=== PATIENT | male | born 1975 | race African-American/Black ===

== ENCOUNTER 2016-06-19 23:38 | Emergency (ER) | payer MEDICAID, MEDICARE ==
[~2016-06-19] VITALS: Ht 193 cm; Wt 80.7 kg
[2016-06-19 23:40] VITALS: BP 127/82
--- NOTE | 2016-06-19 23:57 | Emergency Room Report ---
History of Present Illness General Chief Complaint: Medication Refill Source: Patient, EMS Present Illness HPI Patient presents complaining of hearing voices. He was brought in by EMS. The patient states is been off his medication for 18 months. He usually takes Ativan. After further evaluation he also states he was taking Geodon. Denies suicidality or homicidal ideation. The patient drinking alcohol last night and vomited. There was no blood. He's had some loose stools that have been brown in color but denies melena. Denies any fever or chills productive cough. He states he does spit up phlegm. He's been urinating without dysuria or hematuria. He denies any pain in his joints. No rashes. No headache. No trauma. Allergies: Coded Allergies: No Known Allergies (Unverified , 01/01/15) Patient History Past Medical History: see triage record Social History: Reports: alcohol use, drug use - THC Social History Narrative on streets Reviewed Nursing Documentation: PMH: Agreed, PSxH: Agreed Nursing Documentation-PMH Hx Cardiac Problems: No - PSYCH History Of Psychiatric Problem: Yes - BIPOLAR,SCHIZO Review of Systems All Other Systems: negative except mentioned in HPI Physical Exam Vital Signs Date Time Temp Pulse Resp B/P Pulse Ox O2 Delivery O2 Flow Rate FiO2 06/19/16 23:37 98.1 64 16 132/84 99 Room Air Sp02 EP Interpretation: reviewed, normal General Appearance: well appearing, no apparent distress, other - slightly dishevelled Head: normocephalic Eyes: bilateral eye PERRL, bilateral eye normal inspection ENT: moist mucus membranes Neck: supple Respiratory: lungs clear, normal breath sounds Cardiovascular #1: regular rate, rhythm Cardiovascular #2: 2+ radial (R) Gastrointestinal: normal inspection, normal bowel sounds, non tender, no mass, non-distended Musculoskeletal: back normal, gait/station normal, normal range of motion Neurologic: alert, motor strength/tone normal, cerebellar normal, normal gait, speech normal, oriented - O Psychiatric: no suicidal/homicidal ideation, other - slightly pressured and somewhat anxious, responding to redirection well Skin: normal inspection, warm/dry Medical Decision Making Diagnostic Impression: Primary Impression: Schizophrenia Qualified Codes: F20.3 - Undifferentiated schizophrenia ER Course Presents requesting medication refill. He initially asked to get Ativan however he states he's been hearing voices. I discussed the fact that the Ativan cannot help him with his voices. He states he was drinking alcohol last night and was vomiting. He doesn't appear volume depleted at this time has a normal pulse rate. He denies suicidal or homicidal ideation. The patient will be given his medication and a prescription. He will be advised to followup. There is no medical emergency at this at this time. Improved after medication and resting in NAD. Patient stable for outpatient treatment. Last Vital Signs Date Time Temp Pulse Resp B/P Pulse Ox O2 Delivery O2 Flow Rate FiO2 06/20/16 06:30 98.1 88 21 133/88 97 Room Air Status: improved Disposition: HOME, SELF-CARE Condition: Improved Scripts Ziprasidone Hcl* (GEODON*) 20 Mg Capsule 20 MG ORAL TWICE A DAY, #60 CAP 0 Refills Prov: Leno Trejo M.D. 06/20/16 Leno Trejo M.D. Jun 19, 2016 23:57
[2016-06-20] MEDS ORDERED: Ziprasidone 20mg cap ORAL ONE
[2016-06-20] MEDS ORDERED: LORazepam 0.5mg tab ORAL ONE
[2016-06-20] MEDS ORDERED: GEODON20 MG ORAL (00:16)
[2016-06-20 04:30] VITALS: BP 134/88
[2016-06-20 06:03] VITALS: BP 133/88
[2016-06-20 06:30] VITALS: BP 133/88
== END 2016-06-20 06:30 | disposition home or self-care (01) ==
LOC: EDBD 23:38 → EMR 06-20
DX: F20.9 Schizophrenia, unspecified (principal); Z76.0 Encounter for issue of repeat prescription; F31.9 Bipolar disorder, unspecified; F12.90 Cannabis use, unspecified, uncomplicated
CPT/HCPCS: 99283

== ENCOUNTER 2016-09-13 01:01 | Emergency (ER) | payer MEDICARE, MEDICAID ==
[~2016-09-13] VITALS: Ht 182.9 cm; Wt 80.7 kg
[~2016-09-13 01:01] MED LIST: GEODON20 MG ORAL
[2016-09-13 01:10] VITALS: BP 128/75
[2016-09-13] MEDS ORDERED: GEODON20 MG ORAL (02:30)
--- NOTE | 2016-09-13 02:30 | Emergency Room Report ---
History of Present Illness General Chief Complaint: Medication Refill Source: Patient, EMS Present Illness HPI Is a 40-year-old gentleman with a history of schizophrenia. He said is out of his Geodon for the last month. He does not go to mental health facility. He is go to a different hospital for it. Denies any fever chills denies any nausea vomiting. No suicidal thought homicidal thought. Does hear voices. Denies any recent alcohol or marijuana use. Does smoke daily. Also wanted a place to sleep and something to eat. Allergies: Coded Allergies: No Known Allergies (Unverified , 01/01/15) Patient History Past Medical History: see triage record, old chart reviewed, psych hx Past Surgical History: other Pertinent Family History: none Social History: Reports: smoking, Denies: alcohol use, drug use Immunizations: other Reviewed Nursing Documentation: PMH: Agreed, PSxH: Agreed Nursing Documentation-PMH Hx Cardiac Problems: No - PSYCH Hx Hypertension: Yes History Of Psychiatric Problem: Yes - SCHIZOPHRENIA, BIPOLAR Review of Systems Eye: Denies: blurred vision, eye pain ENT: Denies: ear pain, nose congestion, throat swelling Respiratory: Denies: cough, shortness of breath Cardiovascular: Denies: chest pain, palpitations Gastrointestinal: Denies: abdominal pain, diarrhea, nausea, vomiting Musculoskeletal: Denies: back pain, joint pain Skin: Denies: rash Neurological: Denies: headache, numbness Endocrine: Denies: increased thirst, increased urine Hematologic/Lymphatic: Denies: easy bruising All Other Systems: negative except mentioned in HPI Physical Exam Vital Signs Date Time Temp Pulse Resp B/P Pulse Ox O2 Delivery O2 Flow Rate FiO2 09/13/16 00:55 98.1 88 16 124/83 98 Room Air vitals normal Sp02 EP Interpretation: reviewed, normal General Appearance: well appearing, no apparent distress, alert, other - Disheveled Head: normocephalic, atraumatic Eyes: bilateral eye EOMI, bilateral eye PERRL ENT: hearing grossly normal, normal pharynx Neck: full range of motion, supple, no meningismus Respiratory: chest non-tender, lungs clear, normal breath sounds Cardiovascular #1: regular rate, rhythm, no murmur Gastrointestinal: normal bowel sounds, non tender, no mass, no organomegaly, no bruit, non-distended Musculoskeletal: back normal, gait/station normal, normal range of motion Psychiatric: mood/affect normal Skin: warm/dry Medical Decision Making Diagnostic Impression: Primary Impression: Schizophrenia Qualified Codes: F20.9 - Schizophrenia, unspecified Additional Impression: Encounter for medication refill ER Course Patient here for refill on his Geodon. He also asked for Ativan and Klonopin which I told patient that he follow at [facility] for that. No evidence of withdrawal. No evidence of suicidal thought homicidal thought. His psychiatric issue is at baseline. No criteria for 5150. Is not gravely disabled. Last Vital Signs Date Time Temp Pulse Resp B/P Pulse Ox O2 Delivery O2 Flow Rate FiO2 09/13/16 00:55 98.1 88 16 124/83 98 Room Air Status: improved Disposition: HOME, SELF-CARE Condition: Stable Scripts Ziprasidone Hcl* (GEODON*) 20 Mg Capsule 20 MG ORAL DAILY, #30 CAP 0 Refills Prov: JUAN GARCIA M.D. 09/13/16 Referrals: NOT CHOSEN IPA/,REFERRING (PCP) Patient Instructions: Medicine Refill at the Emergency Department Additional Instructions: Followup with mental health in 7 days. Return if symptom worsen. JUAN GARCIA M.D. September 13, 2016 02:30
[2016-09-13 03:02] VITALS: BP 131/79
[2016-09-13 05:45] VITALS: BP 126/76
[2016-09-13 05:46] VITALS: BP 131/79
== END 2016-09-13 05:46 | disposition home or self-care (01) ==
LOC: EDBD 01:01 → EMR 01:12
DX: F20.9 Schizophrenia, unspecified (principal); Z76.0 Encounter for issue of repeat prescription; F31.9 Bipolar disorder, unspecified
CPT/HCPCS: 99283

== ENCOUNTER 2016-10-22 19:01 | Emergency (ER) | payer MEDICARE, MEDICAID ==
[~2016-10-22] VITALS: Ht 193 cm; Wt 77.6 kg
[~2016-10-22 19:01] MED LIST changes: +KEPPRA500 M4 ORAL; +KEPPRA750 MG ORAL
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
[2016-10-22 19:22] VITALS: BP 94/58
[2016-10-22 19:34] VITALS: BP 94/58
== END 2016-10-22 21:00 | disposition home or self-care (01) ==
LOC: EDUNIT# 19:01 → EDBD 19:01 → EMR 20:35
DX: F20.9 Schizophrenia, unspecified (principal); I10 Essential (primary) hypertension
CPT/HCPCS: 99282

== ENCOUNTER 2016-10-31 21:40 | Emergency (ER) | payer MEDICARE, MEDICAID ==
[~2016-10-31] VITALS: Ht 177.8 cm; Wt 77.1 kg
[2016-10-31 21:46] VITALS: BP 110/78
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
[2016-10-31 21:49] VITALS: BP 110/78
== END 2016-10-31 21:50 | disposition home or self-care (01) ==
LOC: EDBD 21:40 → EMR 21:48
DX: F20.9 Schizophrenia, unspecified (principal); F31.9 Bipolar disorder, unspecified; I10 Essential (primary) hypertension
CPT/HCPCS: 99283